=== PATIENT | male | born 1935 | race Caucasian/White ===

== ENCOUNTER 2024-11-25 12:39 | Inpatient (IN) | payer OTHER, SELFPAY ==
[2024-11-22] VITALS (7 sets, daily range): BP systolic 100–175; BP diastolic 66–87; PULSE 74–81
--- NOTE | 2024-11-22 13:46 | ED.GENMED ---
History of Present Illness
General
Chief Complaint: Fainting Sensation
Source: patient
Exam Limitations: none
Time Seen by Provider: 11/22/24 13:30
History of Present Illness
History of Present Illness:
89yoM with a history of pulmonary fibrosis on 2L NC on chronic prednisone, atrial fibrillation on Eliquis, CHF, and hypertension presenting via EMS for evaluation of a near syncopal episode that occurred about 4 hours SKEIN SPOOLER. Patient states he stood
up and ambulated about 8 feet when he became lightheaded and dizzy. He fell to the ground but did not lose consciousness. He adamantly denies any head strike. Patient is currently feeling better but still feels slightly dizzy. He also reports
shortness of breath but states is chronic. Additionally, he reports low back pain which has been worsening since this incident. EMS reports intermittent bigeminy during transport.
Past History
Past History
ED Past Medical History: Arrthythmia, CHF, COPD, HTN and Other
ED Past Surgical History: Appendectomy and Tonsilectomy
Social History
Tobacco: Former smoker
Alcohol: None
Personal:
Living: with family
Employment: Retired
Family History
Family History: Other
Phy Exam
General Physical Exam
General Presentation: well appearing and no apparent distress
General age: appears stated age
General Skin: warm and dry
General Habitus: normal and elderly
General Mental: alert
ENT Exam
ENT Exam: normocephalic
Cardiovascular Exam
Cardiovascular Exam: no edema and irregularly irregular
Pulmonary Exam
Pulmonary Exam: no respiratory distress, no rales, no rhonchi, no stridor, no wheezing and other (Bibasilar rales)
Neurological Exam
Neurological Exam: alert
Pinnacle Coma Scale
Eye Opening: Spontaneous
Verbal Response: Oriented
Motor Response: Obeys Commands
GCS Total Score: 15
Musculoskeletal Exam
Musculoskeletal Exam: other (+Lumbar tenderness. No step-offs or skin changes.)
Skin Exam
Skin Exam: normal color and warm/dry
Psychiatric Exam
Psychiatric Exam: normal mood/affect
Course
Orders/Labs/Results
Orders:
Orders
11/22/24 13:30
Electrocardiogram (*1) Urgent
Reason for Study: Syncope
11/22/24 13:31
EKG- Treatment ONCE
11/22/24 13:44
Cardiac Monitoring- Treatment ONCE
CR Chest - 2 Views Urgent
Comment:
Reason For Exam: SOB
CR Lumbar Spine Comp Min 4 Vw* Urgent
Comment:
Reason For Exam: low back pain, fall
11/22/24 13:48
Complete Blood Count/With Diff Urgent
Comprehensive Metabolic Panel Urgent
NT-proBNP Urgent
Comment: ADD ON
Troponin I Urgent
11/22/24 13:51
0.9% Sodium Chloride 250 ml [Nss] 250 ml IV BOLUS
11/22/24 Dinner
Cholesterol Lowering
At Your Request: Limited Participation
Does patient need a safe tray?: No
Cholesterol Lowering: Sodium, 2 Gram
11/22/24 15:02
Add On- LAB Urgent
Tests Added?: BNP
11/22/24 16:33
Admit/Transfer Patient As Directed
Co-Sign Provider:
Level of Care: Observation services
Assign to:: Telemetry
Physician / Group: Delmar Gonzales
Diagnosis: near syncope, orthostatic hypotension
Reason for Telemetry: Arrhythmia
Date to Stop Telemetry: 11/25/24
Time to Stop Telemetry: 11:00
PRN Pain Medication Management As Directed
May give lesser potent ordered pain med per pt: Yes
preference::
Protocol:: Medication orders for pain may be administered in a
manner that supports deferring to patient preference
when the pt is:
- Requesting an ordered lesser potent pain medication.
Least to most potent pain medications are defined
as: acetaminophen < NSAID < tramadol < opioids
(morphine, oxycodone, hydromorphone).
- Requesting a lesser dose of the same medication IF
ORDERED.
- Requesting a less intrusive route of administration
if both routes are prescribed by the provider (PO <
IV).
11/22/24 16:35
Code Status As Directed
Resuscitation Status: Full Code
11/22/24 17:30
Acetaminophen [Tylenol] 650 mg PO Q4HPRN PRN
Albuterol [ProAIR HFA INHALER] 2 puff INH R Q6HPRN PRN
Repaglinide [Prandin] 1 mg PO MEALS
Tramadol HCl [Ultram] 50 mg PO Q6HPRN PRN
11/22/24 17:30
Activity As Directed
Activity Level: Out of Bed-Early Mobility
Orthostatic Vital Signs As Directed
Orthostatic VS Frequency: BID
Vital Signs As Directed
Frequency: Per unit guidelines
Weight As Directed
Frequency: Daily
O2 Therapy [RESP] Routine
Titrate/Wean O2 to maintain O2 sat greater than (%): 93
11/22/24 18:00
Thiamine HCl [Vitamin B1] 100 mg PO QPM
11/22/24 20:00
Apixaban [Eliquis] 2.5 mg PO BID
Gabapentin [Neurontin] 300 mg PO BID
Potassium Chloride [KCl] 10 meq PO BID
11/22/24 22:00
Midodrine [ProAmatine] 2.5 mg PO TID
Pravastatin Sodium [Pravachol] 20 mg PO HS
11/23/24 06:00
Basic Metabolic Panel IN AM
Complete Blood Count/No Diff IN AM
11/23/24 08:00
Allopurinol [Zyloprim] 100 mg PO DAILY
Allopurinol [Zyloprim] 300 mg PO DAILY
Cetirizine HCl [Zyrtec] 10 mg PO DAILY
Finasteride [Proscar] 5 mg PO DAILY
Lidocaine [Lidocaine 4% Patch] 1 patch TOPICAL DAILY
Apply Lidocaine patch(s) to:: lumbar back
Magnesium Oxide 500 mg PO DAILY
Multivitamin [Theragran] 1 tablet PO DAILY
Pantoprazole [Protonix] 40 mg PO DAILY
Prednisone [Deltasone] 5 mg PO DAILY
dextromethorphan-guaifenesin [Mucinex DM] 1 tablet PO DAILY
11/24/24 16:00
Torsemide [Demadex] 10 mg PO MOWEFR
11/25/24 11:00
DC Protocol for Telemetry ONCE
Abnormal Lab Results
11/22/24
13:48
RBC 3.62 L 10^6/uL
(4.70-6.10)
Hgb 10.6 L g/dL
(13.0-18.0)
Hct 32.8 L %
(39.0-52.0)
MCHC 32.3 L g/dL
(33.0-37.0)
RDW 15.8 H %
(11.5-14.5)
Abs Immat Gran (auto) 0.1 H 10^3/uL
(0-0.05)
Absolute Neuts (auto) 7.5 H 10^3/uL
(1.4-6.5)
Absolute Lymphs (auto) 0.8 L 10^3/uL
(1.2-3.4)
Absolute Monos (auto) 0.7 H 10^3/uL
(0.1-0.6)
Immature Gran % 1.1 H %
(0-0.5)
Neutrophils % 80.7 H %
(42.2-75.2)
Lymphocytes % 8.9 L %
(20.5-51.1)
BUN 24 H mg/dl
(9-20)
Glucose 132 H mg/dl
(70-99)
Total Protein 6.1 L g/dl
(6.3-8.2)
11/22/24 13:48
11/22/24 13:48
Vital Signs
Initial and Last Documented VS:
Initial Vital Signs
Pulse Resp BP Pulse Ox
62 16 175/75 93
11/22/24 13:32 11/22/24 13:32 11/22/24 13:32 11/22/24 13:32
Last Documented Vital Signs
Temp Pulse Resp BP Pulse Ox
97.6 F 81 20 175/87 98
11/22/24 19:57 11/22/24 19:57 11/22/24 19:57 11/22/24 19:57 11/22/24 19:57
MDM/Problems Addressed
Differential Diagnosis Includes:
89yoM here after a near syncopal episode. Became dizzy with ambulation and fell. Denies head strike or LOC. Still feels lightheaded. EMS reported bigeminy en route. Frequent PVCs noted on monitor. Differential diagnosis includes but is not limited
to: orthostatic hypotension, vasovagal episode, arrhythmia
Initial ED plan: Check cardiac labs, EKG, CXR, and lumbar sprain x-rays. Gentle IV fluid bolus.
*EKG
Interpreted by ED Provider?: Yes
EKG Intrepretation Date: 11/22/24
Heart Rate: 64
Rate: normal
Rhythm: a-fib
[place]: left axis deviation
Interval: normal interval
QRS Pattern: normal QRS
Ischemia: no ischemia
*Critical Care Note
Total Time (30-74mins, 75-104mins- exclusive of procedures): Not Applicable
Update Note
Update Note:
Labs overall unremarkable. EKG shows rate controlled afib. Troponin WNL. CXR shows possible pulmonary edema although he does not appear volume overloaded on exam, BNP added. Lumbar spine x-rays show a superior endplate L1 fracture. Patient reports
persistent dizziness on reassessment. Will admit for further management.
ED Attending Note
-
Portions of this chart may have been created with voice recognition software.� Occasional wrong word or��sound alike� substitutions may have occurred due to the inherent limitations of voice recognition software.
Discharge Plan
Departure
Patient Disposition: Admit
Date of Disposition: 11/22/24
Time of Disposition: 15:
Presentation/result/management discussed w/ accepting MD/DO: Hospitalist
Discharge Problem:
Near syncope
Interventions
Interventions:
*Risk Screen - Suicide Last Done: 11/22/24 13:32
*General Assessment Last Done: 11/22/24 13:32
*Neglect/Abuse Screening Last Done: 11/22/24 13:32
ED- Fall Risk Assessment Last Done: 11/22/24 13:32
*ED COVID-19 Vaccine History Last Done: 11/22/24 13:32
*Nursing Disposition Last Done: 11/22/24 17:25
ED- Cardiac Assessment Last Done: 11/22/24 13:32
ED- Neurological Assessment Last Done: 11/22/24 13:32
Discharge Date and Time
Discharge Date/Time: 11/22/24 17:26
[2024-11-22] MEDS: NSS 250 IV (13:54)
[2024-11-22 14:09] LABS: % Basophils 0.3 % (0-2); % Immature Granulocytes 1.1 % (0-0.5); % Lymphocytes 8.9 % (20.5-51.1); % Neutrophils 80.7 % (42.2-75.2); Absolute Eosinophils 0.1 10^3/uL (0-0.7); Absolute Immature Granulocytes 0.1 10^3/uL (0-0.05); Absolute Lymphocytes 0.8 10^3/uL (1.2-3.4); Absolute Monocytes 0.7 10^3/uL (0.1-0.6); Absolute Neutrophils 7.5 10^3/uL (1.4-6.5); Hematocrit 32.8 % (39.0-52.0); Hemoglobin 10.6 g/dL (13.0-18.0); Mean Corp Hgb Conc. 32.3 g/dL (33.0-37.0); Mean Corpuscular Hgb 29.3 pg (27.0-31.0); Mean Corpuscular Volume 90.6 fL (80.0-94.0); Nucleated Red Blood Cells % 0 % (-); Red Blood Cell Count 3.62 10^6/uL (4.70-6.10); Red Cell Dist. Width 15.8 % (11.5-14.5); White Blood Cell Count 9.3 10^3/uL (4.8-10.8)
[2024-11-22 14:20] LABS: ALT (SGPT) 16 U/L (0-50); AST (SGOT) 18 U/L (17-59); Albumin 3.8 g/dl (3.5-5.0); Alkaline Phosphatase 63 U/L (38-126); Blood Urea Nitrogen 24 mg/dl (9-20); Calcium 9.1 mg/dl (8.4-10.2); Carbon Dioxide 27 mmol/L (22-30); Chloride 104 mmol/L (98-107); Glucose 132 mg/dl (70-99); Potassium 3.8 mmol/L (3.5-5.1); Sodium 139 mmol/L (135-145); Total Bilirubin 0.9 mg/dl (0.2-1.3); Total Protein 6.1 g/dl (6.3-8.2); eGFR 58.53
[2024-11-22 14:30] LABS: Troponin I < 0.012 ng/ml
--- NOTE | 2024-11-22 15:34 | HPS.HSE ---
Family Physician
-
Family Physician: Noreen Rowland
Chief Complaint
-
dizziness and mechanical fall
History of Present Illness
Patient is a 89-year-old male with past medical history significant for hypertension, hyperlipidemia, atrial fibrillation, pulmonary fibrosis, CHF, and hx prostate cancer who presented to [facility] ED for evaluation of near syncopal
episode this morning. Patient reports getting up from his chair and ambulating a few feet when he became dizzy and lightheaded resulting in a mechanical fall without head strike. Patient denies loosing consciousness. Patient reports increased back
pain today, although chronic feels it has been worse today even prior to fall. He does confirm diagnosis of orthostatic hypotension from this past fall where he was started on midodrine 2.5mg TID. EMS noted bigeminy on monitor. Patient denies any
recent illness, fevers, chills, cough, shortness of breath, nausea, vomiting, constipation, diarrhea or urinary symptoms.
Medical History
Past Medical History
Past Medical History: Reports Other
Additional Past Medical History:
benign hypertension
orthostatic hypotension
hyperlipidemia
atrial fibrillation
pulmonary fibrosis
CHF
chronic kidney disease III
neuropathy
GERD
BPH
Gout
chronic back pain
hx prostate cancer
Past Surgical History: Reports Other
Additional Past Surgical History:
tonsillectomy
appendectomy
cardiac ablation
Social History
Tobacco: Former Smoker (quit in 1981)
Alcohol: Former (used to drink daily but has not had a drink in 10-11 months )
Drug: None
Personal:
Living: With Family
Employment: Retired
Family History
Family History: Not pertinent
Allergies / Home Medications
Allergies reflects when Allergies were last updated in [employer].
Home Medications with original date entered in [employer]
Allergy/Medication List:
Allergies
Allergy/AdvReac Type Severity Reaction Status Date / Time
amoxicillin AdvReac Mild Vomiting Verified 12/31/22 11:35
Home Medications
albuterol sulfate 90 mcg/actuation aerosol inhaler 2 puff inhalation Q6HPRN PRN SHORTNESS OF BREATH 11/22/24
allopurinol 100 mg tablet 100 mg PO DAILY 11/22/24
allopurinol 300 mg tablet 300 mg PO DAILY 11/22/24
apixaban 2.5 mg tablet (Eliquis) 2.5 mg PO BID 11/22/24
cetirizine 10 mg tablet (Zyrtec) 10 mg DAILY 11/22/24
dextromethorphan-guaifenesin 30 mg-600 mg tablet extended [id number] hr (Mucinex DM) 1 tab PO DAILY 11/22/24
finasteride 5 mg tablet 5 mg PO DAILY 11/22/24
gabapentin 300 mg capsule 300 mg PO BID 11/22/24
magnesium 200 mg tablet 400 mg PO DAILY 11/22/24
midodrine 2.5 mg tablet 2.5 mg PO TID 11/22/24
xfuqanlkokdu-fthtyuir-vkfflg tablet 1 tab PO DAILY 11/22/24
omeprazole 20 mg capsule,delayed release 20 mg PO DAILY 11/22/24
potassium chloride 10 mEq tablet,extended release 10 meq PO BID 11/22/24
pravastatin 20 mg tablet 20 mg PO HS 11/22/24
prednisone 5 mg tablet 5 mg PO DAILY 11/22/24
repaglinide 1 mg tablet 1 mg PO MEALS 11/22/24
repaglinide 1 mg tablet 1 mg PO TID 11/22/24
thiamine HCl (vitamin B1) 100 mg capsule 100 mg PO QPM 11/22/24
torsemide 10 mg tablet 10 mg PO MOWEFR 11/22/24
Review of Systems
-
History Source: Patient
Constitutional: Reports No Symptoms
EENT: Reports No Symptoms
Respiratory: Reports No Symptoms
Cardiac: Reports No Symptoms
Abdomen/GI: Reports No Symptoms
: Reports No Symptoms
Musculoskeletal: Reports No Symptoms
Skin: Reports No Symptoms
Neurological: Reports Dizzy and Weakness
Endocrine: Reports No Symptoms
Hematologic/Lymphatic: Reports No Symptoms
Psych: Reports No Symptoms
Physical Exam
Vital Signs
Vital Signs
Temp Pulse Resp BP Pulse Ox
97.9 F 61 16 175/75 97
11/22/24 13:51 11/22/24 13:37 11/22/24 13:37 11/22/24 13:37 11/22/24 13:32
Physical Exam
General: Well Developed, Well Nourished, No Apparent Distress, Comfortable, Conversant and Morbidly Obese
HEENT: NormoCephalic, Moist mucous membranes, Atraumatic, [place] Conjunctivae, Nose Appears Normal, Ears Appear Normal and Hearing Impaired (hearing aids in place )
Respiratory: Clear, Non Labored Respirations and Decreased Breath Sounds
Cardiac: S1/S2 and Regular Rhythm; No Murmur, Rub or Gallop
Breast: Deferred by me
GI: Soft, Non Tender, Non Distended and Normal Bowel Sounds; No Organomegaly
Rectal: Deferred by Provider
Genito-urinary: Deferred by me
Musculoskeletal: No Clubbing, No Cyanosis, Edema, Left Lower Extremity and Edema, Right Lower Extremity
Skin: Warm and IV/Catheter Site; No Rash
Neuro: Awake, Alert, AO x 3 and Nonfocal/grossly intact
Psych: Calm and Intact Judgment/Insight
Laboratory Results
-
11/22/24 13:48
11/22/24 13:48
Laboratory Results
Total Bilirubin 0.9 mg/dl (0.2-1.3) 11/22/24 13:48
AST 18 U/L (17-59) 11/22/24 13:48
ALT 16 U/L (0-50) 11/22/24 13:48
Alkaline Phosphatase 63 U/L (38-126) 11/22/24 13:48
Troponin I < 0.012 ng/ml 11/22/24 13:48
Data Reviewed
-
Diagnostic Radiology: Report Reviewed by me (CXR: 1. Moderate bilateral increased interstitial markings and mild bilateral perihilar ground-glass opacity. Distention and cephalization of the pulmonary vasculature is most suggestive of ACUTE
INTERSTITIAL and ALVEOLAR CARDIOGENIC PULMONARY EDEMA. An inflammatory interstitial pneumonitis is an ) and Other (Lumbar: 1. Superior endplate compression fracture of L1 with mild loss of vertebral body height. 2. Mild multilevel lumbar and
lower thoracic discogenic degenerative disease. 3. Diffuse bone demineralization. 4. Severe calcific atherosclerotic plaque in the abdominal aorta and common iliac a)
Medical Tests (Nuc Med, Echo, EKG etc): Report Reviewed by me (EKG:ATRIAL FIBRILLATION WITH A COMPETING JUNCTIONAL PACEMAKER LEFT AXIS DEVIATION MINIMAL VOLTAGE CRITERIA FOR LVH, MAY BE NORMAL VARIANT ( R in aVL ) CANNOT RULE OUT ANTERIOR INFARCT ,
AGE UNDETERMINED)
Lab Data: Labs Reviewed by me
Impression/Plan
-
IMPRESSION/PLAN:
#near syncope likely 2/2 orthostatic hypotension
CXR: 1. Moderate bilateral increased interstitial markings and mild bilateral perihilar ground-glass opacity. Distention and cephalization of the pulmonary vasculature is most suggestive of ACUTE INTERSTITIAL and ALVEOLAR
CARDIOGENIC PULMONARY EDEMA. An inflammatory interstitial pneumonitis is an alternative diagnostic possibility given the absence of pleural effusions.
2. Mildly decreased bilateral lung volumes.
3. Mild to moderate cardiomegaly.
4. Severe calcific atherosclerotic plaque in the thoracic aorta.
EKG: ATRIAL FIBRILLATION WITH A COMPETING JUNCTIONAL PACEMAKER
LEFT AXIS DEVIATION
MINIMAL VOLTAGE CRITERIA FOR LVH, MAY BE NORMAL VARIANT ( R in aVL )
CANNOT RULE OUT ANTERIOR INFARCT , AGE UNDETERMINED
- Admit to telemetry
- orthostatic VS
- consider increase in midodrine if indicated
#hyperlipidemia
- continue pravastatin
#permanent atrial fibrillation
EKG: ATRIAL FIBRILLATION WITH A COMPETING JUNCTIONAL PACEMAKER
LEFT AXIS DEVIATION
MINIMAL VOLTAGE CRITERIA FOR LVH, MAY BE NORMAL VARIANT ( R in aVL )
CANNOT RULE OUT ANTERIOR INFARCT , AGE UNDETERMINED
- monitor on telemetry
- continue Eliquis
#pulmonary fibrosis
chronic O2 at 2-3 Liters @ home
- continue Oxygen to maintain SpO2 >93%
- continue cetirizine, Mucinex, and prednisone
#CHF
BNP pending
- daily weights
- continue torsemide, magnesium and potassium
#chronic kidney disease III
BUN 24, Creat 1.2
- monitor BMP
#neuropathy
- continue gabapentin
#GERD
- continue omeprazole
#BPH
- continue finasteride
#Gout
- continue allopurinol
#chronic back pain
Lumbar X-ray: 1. Superior endplate compression fracture of L1 with mild loss of vertebral body height.
2. Mild multilevel lumbar and lower thoracic discogenic degenerative disease.
3. Diffuse bone demineralization.
4. Severe calcific atherosclerotic plaque in the abdominal aorta and common iliac arteries.
5. Mild fusiform infrarenal abdominal aortic aneurysm (3.5 cm diameter).
- pain control with Tylenol, lidocaine patch and PRN tramadol
#hx prostate cancer
s/p radiation at [place] 2000
#benign hypertension
Code status: full code
DVT prophylaxis: Eliquis
--- NOTE | 2024-11-22 16:21 | W.PN.UPDATE ---
Update Note
Progress Note Update
This is an addendum to the H&P written by Meaghan Rodriguez on 11/22/2024.� Patient seen and examined independently with SECURITY BUSINESS ANALYST.
89-year-old male past medical history of pulmonary fibrosis on 2 L baseline, permanent atrial fibrillation status post ablation on Eliquis, CHF, orthostatic hypotension,�hypertension, CKD 3, prostate cancer status post radiation, presenting with
near syncopal episode 4 hours ago preceded by lightheaded and dizziness.� Did not lose consciousness.� Worsening back pain.� EMS noted bigeminy.
Patient with frequent PVCs noted here.� EKG shows atrial fibrillation with competing junctional pacemaker.
Chest x-ray shows moderate bilateral increased interstitial markings and mild bilateral perihilar groundglass opacity suggestive acute interstitial alveolar cardiogenic pulmonary edema.� Lumbar x-ray shows superior endplate compression fracture of
L1.
Concern for orthostatic hypotension�although blood pressure is labile from 170 to 100 systolic.� Not clinically in heart failure although x-rays suggest this.� There is L1 compression fracture.�
IV fluids were given.�Telemetry monitoring.��Check orthostatic vital signs.� Cardiac BNP pending. Consider increasing midodrine dosage.�
Pain control with tylenol, tramadol, lidocaine patch.�
[2024-11-22 16:27] LABS: NT-proBNP 564 pg/ml
[2024-11-22] MEDS: VITAMIN B1 100 MG PO (18:31)
[2024-11-22] MEDS: PRANDIN 1 MG PO (19:07)
[2024-11-22] MEDS: ELIQUIS 2.5 MG PO (20:36)
[2024-11-22] MEDS: NEURONTIN 300 MG PO (20:36)
[2024-11-22] MEDS: KCL 10 MEQ PO (20:36)
[2024-11-22] MEDS: PRAVACHOL 20 MG PO (21:04)
[2024-11-22] MEDS: TYLENOL 1000 MG PO (22:19)
[2024-11-23] VITALS (9 sets, daily range): BP systolic 125–184; BP diastolic 69–99; PULSE 61–70
[2024-11-23] MEDS: TYLENOL 1000 MG PO ×2 (05:06→20:05)
[2024-11-23 08:01] LABS: Hemoglobin 10.6 g/dL (13.0-18.0); Mean Corp Hgb Conc. 32.1 g/dL (33.0-37.0); Mean Corpuscular Hgb 28.6 pg (27.0-31.0); Mean Corpuscular Volume 88.9 fL (80.0-94.0); Red Blood Cell Count 3.71 10^6/uL (4.70-6.10); Red Cell Dist. Width 15.7 % (11.5-14.5); White Blood Cell Count 6.9 10^3/uL (4.8-10.8)
[2024-11-23 08:18] LABS: Blood Urea Nitrogen 20 mg/dl (9-20); Calcium 9.3 mg/dl (8.4-10.2); Carbon Dioxide 25 mmol/L (22-30); Chloride 105 mmol/L (98-107); Glucose 119 mg/dl (70-99); Potassium 4.4 mmol/L (3.5-5.1); Sodium 139 mmol/L (135-145); eGFR > 60.00
[2024-11-23] MEDS: MAGNESIUM OXIDE 500 MG PO (09:35)
[2024-11-23] MEDS: PRAVACHOL 20 MG PO (09:36)
[2024-11-23] MEDS: ZYRTEC 10 MG PO (09:36)
[2024-11-23] MEDS: KCL 10 MEQ PO ×2 (09:36→20:04)
[2024-11-23] MEDS: PROTONIX 40 MG PO (09:36)
[2024-11-23] MEDS: PROSCAR 5 MG PO (09:36)
[2024-11-23] MEDS: NEURONTIN 300 MG PO ×2 (09:36→20:04)
[2024-11-23] MEDS: DELTASONE 5 MG PO (09:36)
[2024-11-23] MEDS: PRANDIN 1 MG PO ×3 (09:36→17:40)
[2024-11-23] MEDS: THERAGRAN 1 TABLET PO (09:37)
[2024-11-23] MEDS: ZYLOPRIM 300 MG PO (09:37)
[2024-11-23] MEDS: ZYLOPRIM 100 MG PO (09:37)
[2024-11-23] MEDS: ELIQUIS 2.5 MG PO ×2 (09:38→20:04)
[2024-11-23] MEDS: LIDOCAINE 4% PATCH 1 PATCH TOPICAL (09:38)
--- NOTE | 2024-11-23 10:43 | W.PN.HOSP.TC ---
Today's Communication/Plan
-
PT/OT
compression stockings
continue home midodrine
Assessment / Plan
Assessment / Plan
1. Orthostatic hypotension
Supine HTN
-Blood pressure fluctuating from systolic 170s to 120s on exam
-Patient getting dizzy although no syncope
-Start with compression stockings
-Not on antihypertensive
-On midodrine 2.5 mg 3 times daily
2. pulmonary fibrosis
chronic O2 at 2-3 Liters @ home
- continue Oxygen to maintain SpO2 >93%
- continue cetirizine, Mucinex, and prednisone
3. CHF - Type unknown
- no previous TTE in chart
- no signs of volume overload
- daily weights
- continue torsemide, magnesium and potassium
4. Chronic back pain
Lumbar X-ray: 1. Superior endplate compression fracture of L1 with mild loss of vertebral body height.
2. Mild multilevel lumbar and lower thoracic discogenic degenerative disease.
3. Diffuse bone demineralization.
4. Severe calcific atherosclerotic plaque in the abdominal aorta and common iliac arteries.
5. Mild fusiform infrarenal abdominal aortic aneurysm (3.5 cm diameter).
- pain control with Tylenol, lidocaine patch and PRN tramadol
Hyperlipidemia - continue pravastatin
Permanent atrial fibrillation - continue Eliquis
chronic kidney disease III
neuropathy
GERD
BPH
Gout
hx prostate cancer
s/p radiation at [place] 2000
Code status: full code
DVT prophylaxis: Eliquis
Anticipated Discharge: 24 - 48 hours
Subjective/Interval History
-
Date of Service: November 23, 2024
continues to have orthostasis
stable o2 requirement
no other reported problems
Objective Data
-
Labs:
Laboratory Results
11/23/24
07:14
WBC 6.9
Hgb 10.6 L
Hct 33.0 L
Plt Count
Sodium 139
Potassium 4.4
Chloride 105
Carbon Dioxide 25
BUN 20
Creatinine 1.0
Glucose 119 H
Calcium 9.3
Vital Signs:
Vital Signs
Temp Pulse Resp BP Pulse Ox
97.7 F 58 18 168/82 97
11/23/24 07:50 11/23/24 09:37 11/23/24 07:50 11/23/24 09:37 11/23/24 09:29
I&O
11/22/24 11/23/24 11/24/24
06:59 06:59 06:59
Output Total 275 / 275
Balance -275 / -275
Review of Systems
-
All other systems: Reviewed and negative (Except presented in subjective)
Physical Exam
-
General: No Apparent Distress and Comfortable
HEENT: Oxygen (2L NC)
Respiratory: Clear to Auscultation
Cardiac: Regular Rhythm and S1/S2; Negative Murmur or Rub
GI: Soft, Nontender, Nondistended and Normal Bowel Sounds
Musculoskeletal: No Edema
Neuro: Awake, Alert, Oriented, No Motor Deficits and Nonfocal/Grossly Intact
Psych: Calm
--- NOTE | 2024-11-23 16:29 | PTCARENOTE ---
Pt AAO x3, very [place]; forgetful. DELUNA; moves legs slowly d/t lower back discomfort. OOB in chair with PT/walker, kassandra well. VSS. Telemetry:A fib. Currently on room air- pulse ox 98%,no SOB noted. Abd obese, soft, kassandra PO. Incont urine; wears own
Depends. Resting in chair at present, no c/o. Will continue to monitor.
[2024-11-23] MEDS: VITAMIN B1 100 MG PO (17:40)
[2024-11-24] VITALS (10 sets, daily range): BP systolic 103–176; BP diastolic 57–85; PULSE 64–89; O2SAT 84–100
[2024-11-24 07:16] LABS: Hematocrit 35.4 % (39.0-52.0); Hemoglobin 11.6 g/dL (13.0-18.0); Mean Corp Hgb Conc. 32.8 g/dL (33.0-37.0); Mean Corpuscular Hgb 29.1 pg (27.0-31.0); Mean Corpuscular Volume 88.9 fL (80.0-94.0); Mean Platelet Volume 11.7 fL (7.4-10.4); Platelet Count 120 10^3/uL (130-400); Red Blood Cell Count 3.98 10^6/uL (4.70-6.10); Red Cell Dist. Width 15.8 % (11.5-14.5); White Blood Cell Count 7.1 10^3/uL (4.8-10.8)
[2024-11-24 07:48] LABS: Blood Urea Nitrogen 20 mg/dl (9-20); Calcium 9.8 mg/dl (8.4-10.2); Carbon Dioxide 23 mmol/L (22-30); Chloride 106 mmol/L (98-107); Glucose 126 mg/dl (70-99); Potassium 4.8 mmol/L (3.5-5.1); Sodium 139 mmol/L (135-145); eGFR > 60.00
[2024-11-24] MEDS: NEURONTIN 300 MG PO ×2 (09:10→19:57)
[2024-11-24] MEDS: PRANDIN 1 MG PO ×3 (09:11→17:02)
[2024-11-24] MEDS: ELIQUIS 2.5 MG PO ×2 (09:11→19:57)
[2024-11-24] MEDS: ZYLOPRIM 300 MG PO (09:11)
[2024-11-24] MEDS: PROSCAR 5 MG PO (09:11)
[2024-11-24] MEDS: KCL 10 MEQ PO ×2 (09:11→19:57)
[2024-11-24] MEDS: ZYRTEC 10 MG PO (09:11)
[2024-11-24] MEDS: DELTASONE 5 MG PO (09:11)
[2024-11-24] MEDS: THERAGRAN 1 TABLET PO (09:11)
[2024-11-24] MEDS: LIDOCAINE 4% PATCH 1 PATCH TOPICAL (09:11)
[2024-11-24] MEDS: MAGNESIUM OXIDE 500 MG PO (09:11)
[2024-11-24] MEDS: ZYLOPRIM 100 MG PO (09:11)
[2024-11-24] MEDS: PROTONIX 40 MG PO (09:11)
[2024-11-24] MEDS: TYLENOL 1000 MG PO ×2 (10:42→19:57)
--- NOTE | 2024-11-24 11:57 | CM ---
Pt seen bedside w/ spouse. Initial assessment completed. Admitted for dizziness and mechanical fall.
Pt lives w/ spouse at [facility]-independent living. Pt and spouse lives in [address] [place] [address] apartment- elevator access. Pt is independent w/ RW to ambulate, has grab bars in the bathroom, pt has home O2 (2L)- [employer] is the supplier, pt has CPAP, and
also neb machine, pt gets tx 3 times per day.
Pt was prev known to [facility] for inpatient rehab last year Fall. Pt was known to [facility] for services last Fall as well.
Address, points of contact and insurance verified
PCP: Dr. Rowland
[facility]
PT/OT evaluated pt and is determining SNF vs HH
Pt is currently admitted as OBS. PITT form reviewed, pt provided copy, copy on chart
Plan: CM will cont to follow hospital course
--- NOTE | 2024-11-24 15:40 | W.PN.HOSP.TC ---
Today's Communication/Plan
-
Assessment / Plan
Assessment / Plan
Gen-AAOx3, NAD
HEENT-NC, AT, anicteric, clear oral mm
Neck-supple
CV-reg, no M, +S1/S2
Lungs-clear B/L
Abd-soft, NT, ND
Musculoskeletal-no edema, no deformity
Skin-warm and dry
Neuro-grossly non-focal
Psych-calm, cooperative
1. Orthostatic hypotension
Supine HTN
-Blood pressure fluctuating from systolic 170s to 120s
-Patient getting dizzy although no syncope
-Start with compression stockings
-Not on antihypertensive
-On midodrine 2.5 mg 3 times daily which we will continue
-PT/OT
2. pulmonary fibrosis
chronic O2 at 2-3 Liters @ home
- continue Oxygen to maintain SpO2 >93%
- continue cetirizine, Mucinex, and prednisone
3. CHF - Type unknown
- no previous TTE in chart
- no signs of volume overload
- daily weights
- continue torsemide, magnesium and potassium
4. Chronic back pain
Lumbar X-ray: 1. Superior endplate compression fracture of L1 with mild loss of vertebral body height.
2. Mild multilevel lumbar and lower thoracic discogenic degenerative disease.
3. Diffuse bone demineralization.
4. Severe calcific atherosclerotic plaque in the abdominal aorta and common iliac arteries.
5. Mild fusiform infrarenal abdominal aortic aneurysm (3.5 cm diameter).
- pain control with Tylenol, lidocaine patch and PRN tramadol
-Outpatient follow-up with IR for possible kyphoplasty, currently anticoagulated with low-dose Eliquis
5. Abdominal aortic aneurysm
-Imaging noted 3.5 cm fusiform infrarenal abdominal aortic aneurysm, severe calcific atherosclerotic plaque in the abdominal aorta and common iliac arteries
-Ongoing outpatient monitoring recommended
Hyperlipidemia - continue pravastatin
Permanent atrial fibrillation - continue Eliquis
chronic kidney disease III
neuropathy
GERD
BPH
Gout
hx prostate cancer
s/p radiation at [place] 2000
Code status: full code
DVT prophylaxis: Eliquis
Anticipated Discharge: 24 - 48 hours
Subjective/Interval History
-
Date of Service: November 24, 2024
Patient was seen and examined at bedside this morning. On low-dose midodrine due to orthostatic hypotension. No dizziness at rest. Awaiting PT/OT evaluation.
Objective Data
-
Labs:
Laboratory Results
11/24/24
06:56
WBC 7.1
Hgb 11.6 L
Hct 35.4 L
Plt Count 120 L
Sodium 139
Potassium 4.8
Chloride 106
Carbon Dioxide 23
BUN 20
Creatinine 1.1
Glucose 126 H
Calcium 9.8
Vital Signs:
Vital Signs
Temp Pulse Resp BP Pulse Ox
98.4 F 65 20 145/77 94
11/24/24 11:53 11/24/24 11:53 11/24/24 11:53 11/24/24 11:53 11/24/24 11:53
I&O
11/23/24 11/24/24 11/25/24
06:59 06:59 06:59
Intake Total 1000 / 1000
Output Total 675 / 675
Balance 325 / 325
Review of Systems
-
History Source: Patient
All other systems: Reviewed and negative
Physical Exam
-
General: No Apparent Distress
[2024-11-24] MEDS: VITAMIN B1 100 MG PO (17:02)
[2024-11-24] MEDS: DEMADEX 10 MG PO (17:04)
[2024-11-24] MEDS: PRAVACHOL 20 MG PO (19:57)
[2024-11-25 03:00] VITALS: BP 151/78
[2024-11-25] MEDS: ULTRAM 50 MG PO (03:39)
[2024-11-25 06:00] VITALS: BMI 28.3
[2024-11-25 07:54] LABS: Hematocrit 32.8 % (39.0-52.0); Hemoglobin 10.6 g/dL (13.0-18.0); Mean Corp Hgb Conc. 32.3 g/dL (33.0-37.0); Mean Corpuscular Hgb 29.2 pg (27.0-31.0); Mean Corpuscular Volume 90.4 fL (80.0-94.0); Platelet Count 133 10^3/uL (130-400); Red Blood Cell Count 3.63 10^6/uL (4.70-6.10); Red Cell Dist. Width 15.8 % (11.5-14.5); White Blood Cell Count 8.4 10^3/uL (4.8-10.8)
[2024-11-25 08:13] LABS: Blood Urea Nitrogen 23 mg/dl (9-20); Calcium 9.3 mg/dl (8.4-10.2); Carbon Dioxide 25 mmol/L (22-30); Chloride 105 mmol/L (98-107); Estimated Creatinine Clearance 41 ml/min; Glucose 130 mg/dl (70-99); Potassium 4.2 mmol/L (3.5-5.1); Sodium 139 mmol/L (135-145); eGFR 53.17
[2024-11-25 08:14] VITALS: BP 166/86
[2024-11-25] MEDS: LIDOCAINE 4% PATCH 1 PATCH TOPICAL (10:27)
[2024-11-25] MEDS: ZYLOPRIM 300 MG PO (10:28)
[2024-11-25] MEDS: THERAGRAN 1 TABLET PO (10:28)
[2024-11-25] MEDS: KCL 10 MEQ PO (10:28)
[2024-11-25] MEDS: MAGNESIUM OXIDE 500 MG PO (10:28)
[2024-11-25] MEDS: PRANDIN 1 MG PO ×2 (10:28→12:41)
[2024-11-25] MEDS: ZYRTEC 10 MG PO (10:28)
[2024-11-25] MEDS: NEURONTIN 300 MG PO (10:28)
[2024-11-25] MEDS: PROTONIX 40 MG PO (10:28)
[2024-11-25] MEDS: ZYLOPRIM 100 MG PO (10:29)
[2024-11-25] MEDS: PROSCAR 5 MG PO (10:29)
[2024-11-25] MEDS: DELTASONE 5 MG PO (10:29)
[2024-11-25] MEDS: ELIQUIS 2.5 MG PO (10:29)
[2024-11-25] MEDS: TYLENOL 1000 MG PO (11:01)
--- NOTE | 2024-11-25 11:37 | W.DCSUMMARY ---
Addendum entered and electronically signed by Martín Urias DO 11/26/24 14:14:
Acute pulmonary edema is not a valid diagnosis for this patient
Pt does have Chronic hypoxic respiratory failure
Original Note:
Discharge Summary
Discharge Data
Date of Admission: 11/22/24
Date of Discharge: 11/25/24
-
Pending Results: No
Hospital Course
Mr. Cortez is a 89-year-old male with a medical history of pulmonary fibrosis (3 L O2 at baseline), A-fib, CHF, orthostatic hypotension (takes midodrine), and prostate cancer who presented following a near syncopal episode. He began feeling dizzy
shortly after getting up from his chair and beginning to ambulate. He fell but did not strike his head or lose consciousness. He reported back pain worse than usual after his fall. EKG showed A-fib with controlled rate. Labs were generally
unremarkable. He was given fluids and admitted for further evaluation and management.
Lumbar x-ray showed superior endplate compression fracture of L1 with mild loss of vertebral body height. He was treated with pain control medications as needed. It is recommended he follow-up in the outpatient setting with interventional
radiology for evaluation of possible kyphoplasty. He will need to be off of his Eliquis prior to any planned procedure. He should continue to use Tylenol and lidocaine patches as needed for pain control.
He was evaluated by PT/OT while inpatient and was able to successfully ambulate with minimal assistance and ultimately without dizziness. He will need to be mindful to take time when changing positions especially when standing before beginning to
ambulate in order to avoid orthostatic hypotension, dizziness, and syncope. The physical therapist recommended he continue home therapy after discharge.
He should continue to take his home midodrine 2.5 mg p.o. 3 times daily and check his blood pressure regularly. He should not take his midodrine prior to going to sleep at night or if his measured systolic blood pressure is greater than 140.
Also of note, abdominal imaging showed a 3.5 cm fusiform infrarenal abdominal aortic aneurysm and severe calcific atherosclerotic plaque in the abdominal aorta and common iliac arteries. This should be monitored in the outpatient setting.
He will need close follow-up with his primary care physician and [facility] after hospital discharge.
Gen-AAOx3, NAD
HEENT-NC, AT, anicteric, clear oral mm
Neck-supple
CV-reg, no M, +S1/S2
Lungs-clear B/L
Abd-soft, NT, ND
Musculoskeletal-no edema, no deformity
Skin-warm and dry
Neuro-grossly non-focal
Psych-calm, cooperative
Discharge Plan
-
Patient Disposition: Assisted Living
Discharge Diagnosis/Procedures: Orthostatic hypotension, near syncope
Diet: Low Cholesterol
Activity: As tolerated and With Walker
Other Services: PT and OT
Activity Restrictions/Additional Instructions:
Mr. Cortez is a 89-year-old male with a medical history of pulmonary fibrosis (3 L O2 at baseline), A-fib, CHF, orthostatic hypotension (takes midodrine), and prostate cancer who presented following a near syncopal episode. He began feeling dizzy
shortly after getting up from his chair and beginning to ambulate. He fell but did not strike his head or lose consciousness. He reported back pain worse than usual after his fall. EKG showed A-fib with controlled rate. Labs were generally
unremarkable. He was given fluids and admitted for further evaluation and management.
Lumbar x-ray showed superior endplate compression fracture of L1 with mild loss of vertebral body height. He was treated with pain control medications as needed. It is recommended he follow-up in the outpatient setting with interventional
radiology for evaluation of possible kyphoplasty. He will need to be off of his Eliquis prior to any planned procedure. He should continue to use Tylenol and lidocaine patches as needed for pain control.
He was evaluated by PT/OT while inpatient and was able to successfully ambulate with minimal assistance and ultimately without dizziness. He will need to be mindful to take time when changing positions especially when standing before beginning to
ambulate in order to avoid orthostatic hypotension, dizziness, and syncope. The physical therapist recommended he continue home therapy after discharge.
He should continue to take his home midodrine 2.5 mg p.o. 3 times daily and check his blood pressure regularly. He should not take his midodrine prior to going to sleep at night or if his measured systolic blood pressure is greater than 140.
Also of note, abdominal imaging showed a 3.5 cm fusiform infrarenal abdominal aortic aneurysm and severe calcific atherosclerotic plaque in the abdominal aorta and common iliac arteries. This should be monitored in the outpatient setting.
He will need close follow-up with his primary care physician and [facility] after hospital discharge.
Referrals:
Noreen Rowland MD [Family Provider] -
Prescriptions:
Continued
prednisone 5 mg tablet
5 mg PO DAILY
potassium chloride 10 mEq tablet extended release
10 meq PO BID
allopurinol 100 mg tablet
100 mg PO DAILY
gabapentin 300 mg capsule
300 mg PO BID
omeprazole 20 mg capsule,delayed release(DR/EC)
20 mg PO DAILY
allopurinol 300 mg tablet
300 mg PO DAILY
pravastatin 20 mg tablet
20 mg PO HS
midodrine 2.5 mg tablet
2.5 mg PO TID
albuterol sulfate 90 mcg/actuation HFA aerosol inhaler
2 puff INHALATION Q6HPRN PRN (Reason: SHORTNESS OF BREATH)
finasteride 5 mg tablet
5 mg PO DAILY
repaglinide 1 mg tablet
1 mg PO MEALS
Eliquis 2.5 mg tablet
2.5 mg PO BID
cetirizine [Zyrtec] 10 mg Tablet
10 mg DAILY
torsemide 10 mg Tablet
10 mg PO MOWEFR
Mucinex DM 30-600 mg Tablet Extended Release 12 Hr
1 tab PO DAILY
ajebbgqltqpo-zhcvoaea-bjwaat Tablet
1 tab PO DAILY
thiamine HCl (vitamin B1) 100 mg Capsule
100 mg PO QPM
magnesium 200 mg Tablet
400 mg PO DAILY
Discharge Orders:
Discharge Patient (As Directed); Ordered 11/25/24
Ordered By: Martín Urias
Discharge Date and Time
Print Language: ROMANSH
[2024-11-25 11:44] VITALS: BP 138/67
--- NOTE | 2024-11-25 12:08 | CM ---
Pt is stable for d/c today. Therapy recommending home PT, spouse prefers [facility], referral placed, liaison made aware.
[facility] van transport at d/c, nursing unit coordinator was provided transport form. Spouse prefers after 3 pm
IMM reviewed, pt given copy, copy placed on chart
Plan: Home w/ [facility]. [facility] van transport
--- NOTE | 2024-11-25 12:40 | VNURNOTE ---
Home Health Liaison met with patient at bedside. Explained [facility] nurse/therapy, visits, schedule and homebound status. Patient is agreeable and understands that visits at home will be 2-3 x per week to assess and teach medical management. He
requested this author speak with his spouse to explain services as well. Call placed to spouse Emma. She is agreeable and is aware that [facility] will contact them for start of care in 1-2 days after discharge from . [facility] referral in [facility].
[2024-11-25 15:44] VITALS: BP 149/64
--- NOTE | 2024-11-26 11:40 | PN.CDI ---
CDI
- -
CDI:
Physician Documentation Request
Admit Date: 11/25/24 12:39
Dear Doctor Adonay,
11/24 Hospitalist PN: 'pulmonary fibrosis, chronic O2 at 2-3 Liters @ home'
Selected Entries
11/22/24
13:32 11/24/24
07:26 11/25/24
11:44
Nasal Cannula flow liters per minute 2 2 2
Clarify which of the following accurately represents the patient's respiratory status:
Chronic hypoxic respiratory failure
Hypoxia
Other
Use of terms such as suspected, likely, concern for, or probable (associated with a specific diagnosis that is being evaluated, monitored, or treated as if it exists) are acceptable and can be coded in the inpatient setting, when documented at the
time of discharge.
Thank you,
Rosaline Saucedo RN, BSN
CDI Specialist
Available via [place] text
Please use your independent medical judgment in providing your response.
--- NOTE | 2024-11-26 11:56 | PN.CDI ---
CDI
- -
CDI:
Physician Documentation Request
Admit Date: 11/25/24 12:39
Dear Doctor Adonay,
Patient admitted with syncope.
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 '
11/22 Update Note: 'Chest x-ray shows moderate bilateral increased interstitial markings and mild bilateral perihilar groundglass opacity suggestive acute interstitial alveolar cardiogenic pulmonary edema...Not clinically in heart failure although
x-rays suggest this.'
The diagnosis of acute pulmonary edema was included in the signed Chest XRay.
Please indicate in your progress notes if you are in agreement that the above diagnosis is valid for this patient:
____ - Acute pulmonary edema is a valid diagnosis (Please include it in your progress notes)
____ - Acute pulmonary edema is not a valid diagnosis for this patient
____ - Acute pulmonary edema is not yet confirmed but remains a suspected condition
____ - Other
Use of terms such as suspected, likely, concern for, or probable are acceptable for a diagnosis that is being evaluated, monitored or treated as if it exists and can be coded in the inpatient setting, when documented at the time of discharge.
Thank you,
Rosaline Saucedo RN, BSN
CDI Specialist
Available via [place] text
Please use your independent medical judgment in providing your response.
== END 2024-11-25 16:28 | disposition home health service (06) | DRG 543 ==
LOC: 4 EAST ACU 12:39
PROVIDERS: Hospitalist; Nurse Practitioner Family; Physician Assistant; ADMITTING PHYSICIAN Hospitalist; ATTENDING PHYSICIAN Internal Medicine; EMERGENCY PHYSICIAN Emergency Medicine; FAMILY PHYSICIAN Family Medicine
DX: M48.56XA Collapsed vertebra, not elsewhere classified, lumbar region, initial encounter for fracture (principal); I13.0 Hypertensive heart and chronic kidney disease with heart failure and stage 1 through stage 4 chronic kidney disease, or unspecified chronic kidney disease; J96.11 Chronic respiratory failure with hypoxia; I95.1 Orthostatic hypotension; J84.10 Pulmonary fibrosis, unspecified; N18.30 Chronic kidney disease, stage 3 unspecified; I50.9 Heart failure, unspecified; G62.9 Polyneuropathy, unspecified; E78.5 Hyperlipidemia, unspecified; G89.29 Other chronic pain; N40.0 Benign prostatic hyperplasia without lower urinary tract symptoms; M10.9 Gout, unspecified; K21.9 Gastro-esophageal reflux disease without esophagitis; I48.91 Unspecified atrial fibrillation; Z87.891 Personal history of nicotine dependence; Z85.46 Personal history of malignant neoplasm of prostate; Z79.899 Other long term (current) drug therapy; Z88.0 Allergy status to penicillin; Z79.01 Long term (current) use of anticoagulants; Z79.52 Long term (current) use of systemic steroids; Z99.81 Dependence on supplemental oxygen
CPT/HCPCS: 71046; 72110; 80048; 80053; 83880; 84484; 85025; 85027; 93005; 96360; 97162; 97166; 97530; 97535; 99285